=== PATIENT | female | born 1955 | race African-American/Black ===

== ENCOUNTER 2023-01-11 15:36 | Emergency (ER) | payer MEDICAID ==
[~2023-01-11] VITALS: Ht 157.5 cm; Wt 58.0 kg
[2023-01-11 16:25] VITALS: BP 157/81; PULSE 107; RESP 16; TEMP 98.7; O2SAT 97
[2023-01-11] MEDS ORDERED: AMIT10TA6 MT (18:44)
== END 2023-01-11 18:58 | disposition home or self-care (01) ==
LOC: ER 15:36
DX: Z76.0 Encounter for issue of repeat prescription (principal); I10 Essential (primary) hypertension; Z88.0 Allergy status to penicillin
CPT/HCPCS: 99281; 99283